=== PATIENT | male | born 1970 ===

== ENCOUNTER 2022-05-24 12:19 | Day surgery (SDC) | payer OTHER ==
[~2022-05-24] VITALS: Ht 172.7 cm; Wt 82.6 kg
[~2022-05-24 12:19] MED LIST: AMBIEN10 MG PO; CLONAZEPAM1 MG PO; ZESTRIL10 M1 PO
[2022-05-24] MEDS ORDERED: CEPHALEXIN500 MG PO (15:27)
[2022-05-24] MEDS ORDERED: CILOXAN5 ML OTIC (15:28)
== END 2022-05-24 17:45 | disposition home or self-care (01) ==
LOC: CIR.AMB 12:19
PROVIDERS: ATTEND Otolaryngology Otology & Neurotology
DX: H72.2X1 Other marginal perforations of tympanic membrane, right ear (principal); H90.11 Conductive hearing loss, unilateral, right ear, with unrestricted hearing on the contralateral side; Z20.822 Contact with and (suspected) exposure to COVID-19; Z88.8 Allergy status to other drugs, medicaments and biological substances; I10 Essential (primary) hypertension; Z86.16 Personal history of COVID-19; G43.909 Migraine, unspecified, not intractable, without status migrainosus; F10.21 Alcohol dependence, in remission

== ENCOUNTER 2024-07-23 07:06 | Day surgery (SDC) | payer OTHER ==
[2024-07-21 09:17] LABS: URINE APPEARANCE Clear; URINE BILIRRUBIN Negative (NEGATIVE); URINE BLOOD Negative; URINE COLOR Yellow; URINE GLUCOSE Negative (NEGATIVE); URINE KETONE Trace (NEGATIVE); URINE LEUKOCYTE Negative; URINE NITRATE Negative; URINE PROTEIN Negative (NEGATIVE)
[2024-07-21 09:19] LABS: HEMATOCRIT 49.9 % (39.0-48.0); HEMOGLOBIN 16.6 g/dL (13-16.00); MEAN CELL VOLUME 93.4 fL (80.0-100.00); MEAN CORPUSCULAR HGB CONC 33.2 g/dl (32.0-36.0); PLATELET COUNT 266 K/uL (150-450); RED BLOOD COUNT 5.34 M/uL (4.00-6.00); RED CELL DISTRIBUTION WIDTH 14.2 % (11.5-14.5)
[2024-07-21 09:21] LABS: URINE RBC 2.7 uL (0.0-20.8); URINE WBC 2.1 uL (0.0-23.2)
[2024-07-21 09:23] LABS: URINE BACTERIA 2.5 uL (0.0-1933); URINE EPITHELIAL CELLS 0.7 uL (0.0-38.8)
[2024-07-21 09:39] LABS: INR 1.05; PARTIAL THROMBOPLASTIN TIME 28.8 SECONDS (22.0-34.0); PROTHROMBIN TIME 11.4 SECONDS (9.0-11.5)
[2024-07-21 10:08] LABS: CALCIUM 9.4 mg/dL (8.5-10.1); CREATININE SERUM 0.97 mg/dL (0.70-1.30); GFR 80.96; PHOSPHOROUS 2.8 mg/dL (2.5-4.9); POTASSIUM 4.62 mEq/L (3.5-5.1)
[~2024-07-23 07:06] MED LIST changes: +CEPHALEXIN500 MG PO; +CILOXAN5 ML OTIC; +DESVENLAFAXINE 25 MG; +PANTOPRAZOLE SO40 M2; +PEPCID AC20 MG
[2024-07-23] MEDS ORDERED: CIPROFLOXACIN2.5 ML OTIC (10:51)
[2024-07-23] MEDS ORDERED: CEPHALEXIN500 M1 PO (10:51)
[2024-07-23] MEDS ORDERED: LIDOCAINE HCL 1%/EPINEPHRINE 20ML VIAL IJ ONE (11:00)
[2024-07-23] MEDS ORDERED: POVIDONE-IODINE 118 ML BOTT TOP ONE (11:00)
[2024-07-23] MEDS ORDERED: CEFAZOLIN SODIUM 1,000 MG VIAL IV ONE (11:00)
== END 2024-07-23 12:15 | disposition home or self-care (01) ==
LOC: CIR.AMB 07:06
PROVIDERS: ATTEND Otolaryngology Otology & Neurotology
DX: H60.41 Cholesteatoma of right external ear (principal); D23.21 Other benign neoplasm of skin of right ear and external auricular canal; Z88.1 Allergy status to other antibiotic agents